=== PATIENT | female | born 1980 | race Caucasian/White ===

== ENCOUNTER 2018-12-25 08:04 | Observation (INO) | payer BC ==
[~2018-12-25] VITALS: Ht 152.4 cm; Wt 53.5 kg
[2018-12-25 08:12] VITALS: BP_SYST 148
--- NOTE | 2018-12-25 08:14 | NUR ---
Dr. Zhang saw patient in triage.
[2018-12-25] MEDS ORDERED: IBUPROFEN 600 MG TABLET PO ONE (08:15)
--- NOTE | 2018-12-25 08:18 | NUR ---
Patient to ER bed 6 to gown for evaluation. Side rails up. Report given to Cody YAN.
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
--- NOTE | 2018-12-25 08:33 | NUR ---
ER Dr. Zhang at bedside examining patient.
[2018-12-25 10:15] LABS: POTASSIUM 3.8 mmol/L (3.5-5.1)
[2018-12-25] MEDS ORDERED: ONDANSETRON HCL 4 MG/2 ML VIAL IVP ONE (10:15)
[2018-12-25] MEDS ORDERED: MORPHINE 2 MG/ML INJ. SYRINGE IVP ONE (10:15)
[2018-12-25 10:16] LABS: CALCIUM 9.2 mg/dL (8.4-11.0); CREATININE 0.54 mg/dL (0.55-1.30)
[2018-12-25 10:19] LABS: ALBUMIN 4.2 g/dL (3.4-4.8); TOTAL BILIRUBIN 0.9 mg/dL (0.0-1.0)
[2018-12-25 10:21] LABS: INR 1.1 (0.8-1.2); PROTHROMBIN TIME 11.3 SECS (9.5-12.5)
[2018-12-25 10:45] LABS: BASOPHILS % (AUTO) 0.3 % (0.0-2.0); EOSINOPHILS % (AUTO) 0.3 % (0.0-4.0); HEMATOCRIT 41.1 % (36-48); HEMOGLOBIN 13.8 g/dL (12.0-16.0); LYMPHOCYTES # (AUTO) 1.4 K/uL (1.0-5.5); LYMPHOCYTES % (AUTO) 13.2 % (20.5-51.5); MEAN CORPUSCULAR HEMOGLOBIN 31 pg (27-31); MEAN CORPUSCULAR HGB CONC 34 % (32-36); MEAN CORPUSCULAR VOLUME 93 fL (79.0-98.0); MONOCYTES # (AUTO) 0.6 K/uL (0.0-1.0); MONOCYTES % (AUTO) 5.8 % (1.7-9.3); NEUTROPHILS # (AUTO) 8.5 K/uL (1.8-7.7); NEUTROPHILS % (AUTO) 80.4 % (40.0-70.0); PLATELET COUNT (AUTO) 223 K/uL (130-430); RED BLOOD CELL COUNT(AUTO) 4.43 MIL/uL (4.2-6.2); RED CELL DISTRIBUTION WIDTH 13.9 % (9.0-15.0); WHITE BLOOD COUNT (AUTO) 10.5 K/uL (4.8-10.8)
[2018-12-25] MEDS ORDERED: ONDANSETRON HCL 4 MG/2 ML VIAL IVP PRN (11:00)
[2018-12-25] MEDS ORDERED: ACETAMINOPHEN 325 MG TABLET PO PRN (11:00)
[2018-12-25] MEDS ORDERED: IPRATROPIUM BROM 0.5 MG/2.5 ML VIAL.NEB (ATROVENT) INH PRN (11:00)
[2018-12-25] MEDS ORDERED: ALBUTEROL SULFATE 0.083% 2.5 MG/3 ML VIAL.NEB INH PRN (11:00)
--- NOTE | 2018-12-25 11:00 | NUR ---
Medicated for pain per MD orders. Tolerated well. No adverse reaction. VSS. Will admit to [facility].
--- NOTE | 2018-12-25 11:02 | NUR ---
Dr. Avelar at bedside for evaluation
--- NOTE | 2018-12-25 11:06 | NUR ---
Patient will be admitted to care of Dr. Avelar. Admitted to med surg unit. Will go to room 103-B. Belongings list completed. Summary report printed. Report will be given at bedside. Transfer to [facility]. IV present no sign or symptom of infiltration.
--- NOTE | 2018-12-25 11:14 | NUR ---
Admission: Received from ER on a gurney with the diagnosis of Pneumothorax and Rib Fracture. Oriented x4. Denies pain. Oriented to room and call light.
[2018-12-25 11:25] VITALS: BP_SYST 128
--- NOTE | 2018-12-25 11:30 | NUR ---
INITIAL ADMISSION NOTE Patient resting in the bed. No acute distress. AAO x 4. Stated the pain 3/10 and no pain med needed at this time. Skin warm and dry to touch. SL intact to LAC, no redness, no swelling, patent. Discussed the safety issue, use call light when needs help, and plan of care, verbally understanding. Safety measure maintained. Bed locked in low position, side rails up. Refused bed alarm, risk and benefit explained, verbally understanding. Will continue to monitor.
[2018-12-25] MEDS: IPRATROPIUM BROM 0.5 MG/2.5 ML VIAL.NEB (ATROVENT) INH SCH ×4 (11:31→23:00)
[2018-12-25] MEDS: ALBUTEROL SULFATE 0.083% 2.5 MG/3 ML VIAL.NEB INH SCH ×4 (11:31→23:00)
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
--- NOTE | 2018-12-25 13:10 | NUR ---
LUNCH Patient sitting on upright position in the bed and eating lunch. No c/o pain at this time. Safety measure maintained. Call light within reached. Bed locked in low position, side rails up. Continue to monitor.
--- NOTE | 2018-12-25 13:35 | NUR ---
SEEN AND EXAMINED BY ISABELLE BECERRA WITH ORDER RECEIVED.
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
[2018-12-25] MEDS: MORPHINE 2 MG/ML INJ. SYRINGE IVP PRN ×2 (14:58→20:25)
--- NOTE | 2018-12-25 15:00 | NUR ---
PT GIVEN PAIN MEDICATION FOR RIB PAIN.
[2018-12-25 15:19] VITALS: BP_SYST 115
--- NOTE | 2018-12-25 16:00 | NUR ---
CXR RESULT RELAYED TO DR BARRON, NO NEW ORDER.
--- NOTE | 2018-12-25 18:34 | NUR ---
CLOSING NOTES, PT HAS LITTLE/TOLERABLE PAIN 2-3/10 THIS TIME, ENCOURAGED TO CALL FOR ASSIST AND PAIN MEDICATIONS. PT'S INFORMED REMAINED CONFIDENTIAL. WILL ENDORSE TO NIGHT NURSE.
--- NOTE | 2018-12-25 19:20 | NUR ---
INITIAL NOTE RECEIVED PATIENT AWAKE, ALERT AND ORIENTED. NO SOB NOTED. DENIES ANY N/V AT THIS TIME. COMPLAIN OF MODERATE LEFT RIB PAIN, WILL MEDICATE. SALINE LOCK FLUSHED. SKIN INTACT AND NO PERIPHERAL EDEMA NOTED. AMBULATES WITH STEADY GAIT. TEMP WAS 99.6, WILL MEDICATE FOR LOW GRADE FEVER AND WILL PROVIDE COOLING MEASURES WELL. CARE AND MONITORING WILL BE PROVIDED PER PROTOCOL. CALL LIGHT WITHIN REACH. BED ALARM OFF PER PATIENT'S REQUEST. BED AT LOWEST POSITION AT ALL TIMES. NEEDS ATTENDED. KEPT WARM AND COMFORTABLE.
[2018-12-25 20:00] VITALS: BP_SYST 102
--- NOTE | 2018-12-25 20:25 | NUR ---
PAIN MED MEDICATED FOR LEFT FLANK PAIN REQUESTED. ADVISED TO CALL IF SHE FEELS WEAK OR DIZZY BEFORE AMBULATING. NEEDS ATTENDED.
--- NOTE | 2018-12-25 23:00 | NUR ---
RN NOTE AROUSABLE. NO COMPLAINTS AT THIS TIME. NEEDS ATTENDED. SELF REPOSITION.
--- NOTE | 2018-12-26 00:20 | NUR ---
[facility] FROM [facility] CALLED RE ORDER FOR TEST FOR THE PATIENT. LAB HASN'T RECEIVED URINE SPECIMEN FOR IT RATHER WILL DO THE TEST FROM BLOOD SPECIMEN THAT THEY HAVE.
[2018-12-26 01:32] VITALS: BP_SYST 101
--- NOTE | 2018-12-26 02:30 | NUR ---
RN NOTE PATIENT SLEEPING AT THIS TIME. NO SOB OR GRIMACING NOTED.
[2018-12-26] MEDS: ALBUTEROL SULFATE 0.083% 2.5 MG/3 ML VIAL.NEB INH SCH ×4 (03:00→15:10)
[2018-12-26] MEDS: IPRATROPIUM BROM 0.5 MG/2.5 ML VIAL.NEB (ATROVENT) INH SCH ×4 (03:00→15:10)
--- NOTE | 2018-12-26 04:00 | NUR ---
RN NOTE ASLEEP, MOVES OCCASIONALLY. NO DISTRESS NOTED.
--- NOTE | 2018-12-26 06:22 | NUR ---
END NOTE VS STABLE. AFEBRILE AT MIDNIGHT. NO COMPLAIN OF SOB OR N/V THROUGHOUT THE NIGHT. MEDICATED FOR LEFT FLANK PAIN (ONLY WHEN SHE MOVES) ONCE LAST NIGHT. ABLE TO SLEEP FOR HOURS. SALINE LOCK. AMBULATORY WITH STEADY GAIT. AM LABS TODAY. CARE AND MONITORING PROVIDED PER PROTOCOL. CALL LIGHT WITHIN REACH. BED ALARM OFF PER PATIENT'S REQUEST. BED AT LOWEST POSITION AT ALL TIMES. NEEDS ATTENDED. KEPT WARM AND COMFORTABLE.
[2018-12-26] MEDS: MORPHINE 2 MG/ML INJ. SYRINGE IVP PRN ×2 (06:43→11:27)
--- NOTE | 2018-12-26 06:43 | NUR ---
PAIN MED MEDICATED FOR LEFT RIB PAIN REQUESTED. CXR WAS DONE EARLIER. WILL CONTINUE TO MONITOR. NEEDS ATTENDED.
[2018-12-26 07:23] LABS: BASOPHILS % (AUTO) 0.5 % (0.0-2.0); EOSINOPHILS % (AUTO) 4.1 % (0.0-4.0); HEMATOCRIT 36.2 % (36-48); HEMOGLOBIN 12.2 g/dL (12.0-16.0); LYMPHOCYTES % (AUTO) 23.8 % (20.5-51.5); MEAN CORPUSCULAR HEMOGLOBIN 31 pg (27-31); MEAN CORPUSCULAR HGB CONC 34 % (32-36); MEAN CORPUSCULAR VOLUME 93 fL (79.0-98.0); MONOCYTES % (AUTO) 8.8 % (1.7-9.3); NEUTROPHILS % (AUTO) 62.8 % (40.0-70.0); PLATELET COUNT (AUTO) 188 K/uL (130-430); RED BLOOD CELL COUNT(AUTO) 3.89 MIL/uL (4.2-6.2); RED CELL DISTRIBUTION WIDTH 14.1 % (9.0-15.0)
[2018-12-26 07:24] LABS: EOSINOPHILS # (AUTO) 0.3 K/uL (0.0-0.4); LYMPHOCYTES # (AUTO) 1.6 K/uL (1.0-5.5); MONOCYTES # (AUTO) 0.6 K/uL (0.0-1.0); NEUTROPHILS # (AUTO) 4.2 K/uL (1.8-7.7); WHITE BLOOD COUNT (AUTO) 6.7 K/uL (4.8-10.8)
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
[2018-12-26 08:30] VITALS: BP_SYST 117
[2018-12-26 11:22] VITALS: BP_SYST 112
--- NOTE | 2018-12-26 12:00 | NUR ---
NURSES NOTES: PT REMAINS STABLE, NO CHANGES IN CONDITION, RESTING IN POSITION OF COMFORT, CALL LIGHT WITHIN REACH, WILL CON'T TO MONITOR AND ASSESS.
--- NOTE | 2018-12-26 15:30 | NUR ---
DISCHARGE: PT DISCHARGED TO HOME, INSTRUCTIONS GIVEN TO FOLLOW-UP WITH PCP, PT WILL ARRANGE APPT TIME AND DATE, VERBALIZES UNDERSTANDING, FAMILY AWARE OF DISCHARGE, ALL BELONGINGS ACCOUNTED FOR AND REMAIN WITH PT, ACCOMPANIED BY EMPLOYEE TO PARKING LOT IN STABLE CONDITION.
[2018-12-26 16:00] VITALS: BP_SYST 117
[2018-12-26 16:01] VITALS: BP_SYST 117
== END 2018-12-26 17:56 | disposition home or self-care (01) ==
LOC: SED 08:04 → EEVIPCON 08:04 → SMU 10:40
PROVIDERS: ADMIT Internal Medicine Hospice and Palliative Medicine; ATTEND Internal Medicine Hospice and Palliative Medicine
DX: S22.49XA Multiple fractures of ribs, unspecified side, initial encounter for closed fracture (principal); S27.0XXA Traumatic pneumothorax, initial encounter; X58.XXXA Exposure to other specified factors, initial encounter; Y93.89 Activity, other specified; Y92.89 Other specified places as the place of occurrence of the external cause; Y99.8 Other external cause status
CPT/HCPCS: 36415 ×2; 71045 ×2; 71046; 71100; 80053; 83690; 84703; 85025 ×2; 85610; 85730; 93005; 94640 ×2; 94760; 96374; 96375; 96376 ×2; 99285; G0378 ×2; J2270 ×2; J2405; J7613 ×2

== ENCOUNTER 2019-05-13 13:16 | Emergency (ER) | payer BC ==
[~2019-05-13] VITALS: Ht 152.4 cm; Wt 53.1 kg
[2019-05-13 13:24] VITALS: BP_SYST 130
[2019-05-13 15:43] LABS: BASOPHILS % (AUTO) 0.2 % (0.0-2.0); EOSINOPHILS # (AUTO) 0.1 K/uL (0.0-0.4); EOSINOPHILS % (AUTO) 0.7 % (0.0-4.0); HEMOGLOBIN 13.4 g/dL (12.0-16.0); LYMPHOCYTES # (AUTO) 0.7 K/uL (1.0-5.5); LYMPHOCYTES % (AUTO) 6.3 % (20.5-51.5); MEAN CORPUSCULAR HEMOGLOBIN 31 pg (27-31); MEAN CORPUSCULAR HGB CONC 34 % (32-36); MEAN CORPUSCULAR VOLUME 92 fL (79.0-98.0); MONOCYTES # (AUTO) 0.5 K/uL (0.0-1.0); MONOCYTES % (AUTO) 4.5 % (1.7-9.3); NEUTROPHILS # (AUTO) 9.3 K/uL (1.8-7.7); NEUTROPHILS % (AUTO) 88.3 % (40.0-70.0); PLATELET COUNT (AUTO) 189 K/uL (130-430); RED BLOOD CELL COUNT(AUTO) 4.37 MIL/uL (4.2-6.2); RED CELL DISTRIBUTION WIDTH 13.9 % (9.0-15.0); WHITE BLOOD COUNT (AUTO) 10.5 K/uL (4.8-10.8)
[2019-05-13 15:46] LABS: CALCIUM 8.2 mg/dL (8.4-11.0); CREATININE 0.58 mg/dL (0.55-1.30); POTASSIUM 3.7 mmol/L (3.5-5.1)
[2019-05-13 15:52] LABS: ALBUMIN 3.8 g/dL (3.4-4.8); TOTAL BILIRUBIN 0.7 mg/dL (0.0-1.0)
--- NOTE | 2019-05-13 16:19 | NUR ---
Patient to ER bed 8 to gown for evaluation. Side rails up.
--- NOTE | 2019-05-13 16:19 | NUR ---
pt presenst to ED c/o RLQ abd x 2 days with n/v/d. Pt reports vomiting approx 8 times. Pt denies significant med hx
[2019-05-13] MEDS ORDERED: NACL 0.9% 1,000 ML IV ONE (16:25)
[2019-05-13] MEDS ORDERED: ONDANSETRON HCL 4 MG/2 ML VIAL IVP ONE (16:30)
[2019-05-13] MEDS ORDERED: MORPHINE 4 MG/ML INJ. SYRINGE IVP ONE (16:30)
[2019-05-13 16:41] LABS: AMYLASE 53 U/L (0-100); LIPASE 67 U/L (73-393)
[2019-05-13 16:41] LABS: BILIRUBIN,URINE NEGATIVE (NEGATIVE); BLOOD, URINE 1+ (NEGATIVE); CLARITY/URINE CLEAR (CLEAR); COLOR,URINE YELLOW (YELLOW); GLUCOSE,URINE NEGATIVE (NEGATIVE); KETONES,URINE 1+ (NEGATIVE); LEUKOCYTE ESTERASE ,URINE NEGATIVE (NEGATIVE); NITRITE, URINE NEGATIVE (NEGATIVE); PH,URINE 6.5 (5.0-8.0); PROTEIN URINE NEGATIVE (NEGATIVE); UROBILINOGEN,URINE 0.2 (0.2-1.0)
--- NOTE | 2019-05-13 16:45 | NUR ---
Dr Leyva at bedside examining patient
[2019-05-13 16:47] LABS: PROTHROMBIN TIME 10.2 SECS (9.5-12.5)
[2019-05-13 17:12] LABS: BACTERIA,URINE None Seen /HPF (None Seen); WBC,URINE NONE SEEN /HPF (0-3)
[2019-05-13 17:13] LABS: MUCUS,URINE 2+ /LPF (None Seen)
--- NOTE | 2019-05-13 17:30 | NUR ---
Pt A&Ox4, VSS, respirations even and unlabored, no N/V noted, states pain is improving
--- NOTE | 2019-05-13 18:30 | NUR ---
Pt resting at this time, no s/s of distress.
[2019-05-13 19:19] VITALS: BP_SYST 130
--- NOTE | 2019-05-13 19:22 | NUR ---
Patient given written and verbal discharge instructions and verbalizes understanding. ER MD discussed with patient the results and treatment provided. Patient in stable condition. ID arm band removed. Rx of Zofran, Tylenol with codeine given. Patient educated on pain management and to follow up with PMD. Pain Scale 0/10. Opportunity for questions provided and answered. Medication side effect fact sheet provided.
== END 2019-05-13 19:19 | disposition home or self-care (01) ==
LOC: SED 13:16
DX: K52.9 Noninfective gastroenteritis and colitis, unspecified (principal); R10.31 Right lower quadrant pain; E86.0 Dehydration
CPT/HCPCS: 36415; 74176; 76700; 80053; 81000; 82150; 83605; 83690; 85025; 85610; 85730; 87040; 96374; 96375; 99284; J2270; J2405; J7030